=== PATIENT | male | born 1965 | race Caucasian/White ===

== ENCOUNTER 2018-01-14 07:35 | Outpatient (CLI) | END 2018-01-14 07:52 | disposition short-term general hospital (02) | LOC: AMBL 07:35 | PROVIDERS: ATTEND Internal Medicine | DX: R56.9 Unspecified convulsions (principal); W19.XXXA Unspecified fall, initial encounter; R47.81 Slurred speech; R41.0 Disorientation, unspecified; R00.0 Tachycardia, unspecified; R22.1 Localized swelling, mass and lump, neck ==